=== PATIENT | female | born 1990 | race Caucasian/White ===

== ENCOUNTER 2020-05-04 06:00 | Inpatient (IN) ==
[2020-05-04] MEDS ORDERED: ONDANSETRON 4 MG TAB.RAPDIS PO PRN (06:12)
[2020-05-04] MEDS ORDERED: RINGER'S SOLUTION,LACTATED 1,000 ML IV ONE (06:12)
[2020-05-04] MEDS ORDERED: OXYTOCIN/DEXTROSE 5%-WATER 30 UNITS/500 ML BAG IV ONE (06:12)
[2020-05-04] MEDS ORDERED: LIDOCAINE HCL 50 ML VIAL PERI PRN (06:12)
[2020-05-04] MEDS ORDERED: BUTORPHANOL TARTRATE 2 MG/ML VIAL IV PRN ×2 (06:12)
[2020-05-04] MEDS: RINGER'S SOLUTION,LACTATED 1,000 ML IV PRN ×2 (07:18→16:06)
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
[2020-05-04] MEDS ORDERED: ONDANSETRON HCL/PF 2 MG/ML VIAL IV PRN (11:01)
[2020-05-04] MEDS ORDERED: BUPIVACAINE HCL/0.9 % NACL/PF 250 ML EP PRN (11:01)
[2020-05-04] MEDS ORDERED: NALOXONE HCL 1 MG/1 ML SYRG IV PRN (11:01)
--- NOTE | 2020-05-04 11:10 | PN ---
Progess Note - Interim Date: 05/04/20 Time: 11:06 Narrative: 05/04/20 11:06 The patient is starting to feel her ctx more cvx /-1 AROM for clear fluid FHT cat 1 ctx q 1-2 mins
[2020-05-04] MEDS ORDERED: fentaNYL CITRATE/PF 50 MCG/ML AMPUL IT SCH (11:15)
--- NOTE | 2020-05-04 11:17 | ANES ---
Anesthesia Pre Procedure Eval Vitals/Labs: Last Vital Signs Temp 36.7 C 05/04/20 06:38 Pulse 111 H 05/04/20 06:38 Resp 18 05/04/20 06:38 BP 116/71 05/04/20 06:38 Pulse Ox 99 05/04/20 06:38 HOME MEDICATIONS [id number] 400 mcg-om3 35 mg-dha 25 mg-epa 5 mg-fish oil chewable tablet 1 tab PO DAILY 09/12/19 [Last Taken 05/02/20 09:00] ferrous sulfate 325 mg (65 mg iron) tablet 325 mg PO DAILY 04/14/20 [Last Taken 05/02/20 09:00] Allergies/Adverse Reactions: Allergies Allergy/AdvReac Type Severity Reaction Status Date / Time No Known Allergies Allergy Verified 04/28/20 10:04 - Planned Procedure Planned Procedure: ELECTIVE INDUCTION Medication List Reviewed:: Yes Allergies Verified: Yes Medical History (Last Reviewed 05/04/20 @ 11:16 by Quinton Alexandre CRNA) Anemia affecting Anxiety Elbow fracture, right Onset Date: ~1995 surgery-pins Prior with demise IOL @ 22weeks, hydrocephaly, enlarged brain ventricles, abnormal brain stem Spontaneous Onset Date: ~2014 x2 Surgical History (Last Reviewed 05/04/20 @ 11:16 by Quinton Alexandre CRNA) History of elbow surgery Onset Date: ~1995 right elbow fracture History of tonsillectomy Onset Date: ~1995 Family History (Last Reviewed 05/04/20 @ 11:16 by Quinton Alexandre CRNA) Mother A-fib Father Alcoholic Son Cleft palate - Family Anesthesia History Family History:: no untoward family reactions to anesthesia, no familial bleeding tendencies, no family history of clotting disorders, no family history of premature - Airway/Neck/Teeth Within Normal Limits:: Yes Teeth Condition: intact Neck Exam: full range of motion Mallampatti Score: 2 Thyromental (T-M) distance: > 6 cm Mandibulo Hyoid distance: > 3 cm - Respiratory Respiratory Physical: lungs clear Sleep Apnea currently treated: No Sleep Apnea by current assessment: No - Cardiovascular Tolerate Activity: Fair Heart Sounds: S1 & S2, Regular - Gastrointestinal NPO since: 2400 - Anesthesia Assessment and Plan ASA Class: PS, II, E Anesthesia Type Plan: Epidural - CSE for labor anlagesia
--- NOTE | 2020-05-04 11:41 | ANES ---
Post Anesthesia Discharge - Transfer of Care Transfer of Care handoff given to nurse: Yes - Discharge from PACU Discharge from PACU when meets criteria: Yes - Comfortable post CSE
--- NOTE | 2020-05-04 11:43 | ANES ---
Anesthesia Procedure Note Procedure Note: ANESTHESIA PROCEDURE NOTE Date of Procedure: 05/04/2020 Time of procedure: 11:20 AM. Performed by: TENZIN Harry CRNA, MSN Atmospheric Scientist: Diana Noel RN. Preprocedure diagnosis: Active labor, labor pain. Post procedure diagnosis: Same. Procedure:Epidural for labor analgesia L3-4. Indications: Labor pain. Findings: See below. Details of the procedure: Ms. Valdes was very anxious but appeared to understand and accept the procedure and risks. The patient was placed on the side of the bed in sitting positionand prepped with DuraPrep then draped in a sterile fashion. Lidocaine 1% was infiltrated to the skin and subcutaneous tissues at the level of the L3-4 interspace. An 18-gauge Touhy needle was used to approach the epidural space with loss of resistance technique. Once loss of resistance was achieved a 27-gauge spinal needle was passed through the epidural needle and CSF was contacted. After CSF returned, 20 mcg of fentanyl was injected in the spinal needle was removed the epidural catheter was then threaded approximately 4 cm in the epidural needle was removed. The catheter was taped in place and after careful aspiration 3 mL of 1.5% lidocaine with 1-200,000 epinephrine was injected without change in maternal heart rate or sensorium. . EBL: Minimal. Fluids: N/A. Specimen: N/A. Post procedure condition: The patient tolerated the procedure well with good relief. No complications were noted. Thank you for this consultation. Quinton Alexandre CRNA, TENZIN, MSN
--- NOTE | 2020-05-04 11:49 | ANES ---
Post Anesthesia Assessment - Vital Signs Vitals: Last Vital Signs Temp 36.7 C 05/04/20 06:38 Pulse 111 H 05/04/20 06:38 Resp 18 05/04/20 06:38 BP 116/71 05/04/20 06:38 Pulse Ox 99 05/04/20 06:38 Airway Patency: Normal - Mental Status Level Of Consciousness: Awake, Alert, Appropriate - Pain Level Pain Score: 0 - N/V Assessment Nausea/Vomiting Presence: None Dehydration:: No
[2020-05-04] MEDS ORDERED: GLYCERIN/WITCH HAZEL LEAF 40 APPL BOX TP PRN (17:17)
[2020-05-04] MEDS ORDERED: HYDROCORTISONE 30 APPL TUBE TP PRN (17:17)
[2020-05-04] MEDS ORDERED: SENNOSIDES 8.6 MG TABLET PO PRN (17:17)
[2020-05-04] MEDS ORDERED: BISACODYL 10 MG SUPP.RECT RC PRN (17:17)
[2020-05-04] MEDS ORDERED: BENZOCAINE/MENTHOL 81 SPRAY CAN TP PRN (17:17)
[2020-05-04] MEDS ORDERED: OXYTOCIN/0.9 % SODIUM CHLORIDE 30 UNITS/500 ML BAG IV ONE (17:17)
[2020-05-04] MEDS ORDERED: HYDROcodone/ACETAMINOPHEN 1 EACH TABLET PO PRN ×2 (17:17)
[2020-05-04] MEDS ORDERED: diphenhydrAMINE HCL 25 MG CAPSULE PO PRN (17:17)
--- NOTE | 2020-05-04 17:23 | OR ---
Operative Report - Dictated Report Narrative: Date of delivery: 05/04/2020 Time of delivery: 1707 Gender: male weight: 3205 grams APGARS: 05/06 Procedure: Description of the procedure: The patient is a 30 year old (2 live births) who underwent an elective IOL. She received pitocin and was augmented by AROM. She progressed to complete dilation. She delivered a viable male infant in [place] presentation. A loose nuchal cord was noted and the baby spontaneously delivered through the nuchal cord. After delivery the nuchal cord was reduced. Cord clamping was delayed for 60 seconds due to a vigorous . The cord was clamped and cut. Cord blood was collected. The placenta delivered by expression and appeared intact. There were no lacerations. EBL: 100 mL Complications: none Specimens: cord blood History for MU Definition: * The number of deliveries resulting in a live the patient experienced prior to current hospitalization * The previous delivery of live twins or any live multiple gestation is considered one live event. *If primagravida or nulliparous is documented select zero for the number of previous live births. Live Events: 2
[2020-05-04] MEDS: IBUPROFEN 800 MG TABLET PO PRN (18:35)
[2020-05-04] MEDS: DOCUSATE SODIUM 100 MG CAPSULE PO SCH (20:29)
[2020-05-04] MEDS: ACETAMINOPHEN 325 MG TABLET PO PRN (20:29)
[2020-05-05] MEDS: IBUPROFEN 800 MG TABLET PO PRN ×2 (00:53→08:03)
[2020-05-05] MEDS: ACETAMINOPHEN 325 MG TABLET PO PRN (02:50)
[2020-05-05] MEDS: DOCUSATE SODIUM 100 MG CAPSULE PO SCH (08:03)
[2020-05-05 14:04] VITALS: BP 128/75
[2020-05-05] MEDS ORDERED: NEOMYCIN/BACITRACIN/POLYMYXINB 15 APPL TUBE TP PRN (15:38)
--- NOTE | 2020-05-05 15:46 | PN ---
Subjective - Date and Time Seen Date: 05/05/20 Time: 15:44 Subjective Narrative: Patient without complaints Objective Objective Narrative: See vitals signs - Review of Systems Generalized/Overall Review: Reports: No Symptoms Reported Misc: All systems neg except as marked - Vitals Vitals: Last Vital Signs Temp 36.7 C 05/05/20 13:00 Pulse 80 05/05/20 13:00 Resp 14 05/05/20 13:00 BP 128/75 05/05/20 13:00 Pulse Ox 96 05/05/20 13:00 - Exam Constitutional: Present: Alert, Oriented x3, Cooperative, No distress ENT Exam: Present: hearing grossly normal Abdomen: Present: soft, nontender, nondistended - fundus is firm Extremity: Present: non-tender, no calf tenderness Skin Exam: Present: normal color, warm/dry, no cyanosis Neurologic: Present: alert, normal mood/affect, oriented x 3 Appearance: Present: appropriate appearance, appropriate insight, neat, no memory impairment Eye contact: Present: cooperative, good eye contact, normal speech Thoughts: Present: normal thought pattern Cauti Physician Documentation - Urinary Catheter Management Urethral (Barnes) Urethral Indwelling: No Date of Insertion: 05/04/20 Time of Insertion: 12:35 Date of Removal: 05/04/20 Time of Removal: 16:57 Assessment/Plan Plan Narrative: PPD 1 s/p Doing well Discharge today Follow-up in 6 weeks or sooner for any other concerns - Problems/Diagnosis (1) Encounter for elective induction of labor Problem: Acute (2) 39 weeks gestation of Problem: Acute (3) Anemia during in third trimester Problem: Acute (4) Rh negative, maternal Problem: Acute Qualifiers: Trimester: third trimester Qualified Code(s): O26.893 - Other specified related conditions, third trimester; Z67.91 - Unspecified blood type, Rh negative
--- NOTE | 2020-05-06 12:58 | DS ---
OB Discharge Summary (1) Encounter for elective induction of labor Status: Acute (2) 39 weeks gestation of Status: Acute (3) Anemia during in third trimester Status: Acute (4) Rh negative, maternal Status: Acute Qualifiers: Trimester: third trimester Qualified Code(s): O26.893 - Other specified related conditions, third trimester; Z67.91 - Unspecified blood type, Rh negative - Discharge Information Date of Discharge: 05/05/20 Discharge Location: Home Disposition: Home self-care Activity on Discharge:: Activity as tolerated, Pelvic Rest Discharge Diet: General/regular food Additional Patient Instructions (free text): Hanny you have an appointment with Dr. Arreguin in 6 weeks on May, at 9:00am. Your has an appointment with Dr Hinojosa on 05/07/20 at 1015am His wt is 7lb 1.3 oz today Feed him at breast or bottle every 2-3 hours or oftener if he is hungry. He passed his hearing screen and Your appointment for Complete Home Medications List: Complete Home Medication List: [id number] 400 mcg-om3 35 mg-dha 25 mg-epa 5 mg-fish oil chewable tablet 1 tab PO DAILY 09/12/19 - Plan Discharge to:: Home Follow up in office in:: 6 weeks Weight (Grams): 3,205 Infant Sex: Male Score 1 min: 9 Score 5 min: 9 Circumcision: No Infant Complications: None
== END 2020-05-05 18:40 | disposition home or self-care (01) | DRG 807 ==
LOC: OB 06:07
PROVIDERS: ADMIT Obstetrics & Gynecology; ATTEND Obstetrics & Gynecology